=== PATIENT | female | born 1955 | race Caucasian/White ===

== ENCOUNTER 2017-08-15 03:55 | Observation (INO) | payer OTHER ==
[2017-08-15] MEDS ORDERED: Nitroglycerin 2% Ointment 1 INCH/1 GM Packet ONE (04:05)
[2017-08-15] MEDS ORDERED: Aspirin 325 MG TAB ONE (04:05)
[2017-08-15 04:19] LABS: #Basophils 0.1 thou/uL (0.0-0.2); #Eosinphils 0.2 thou/uL (0.0-0.7); #Lymphocytes 2.1 thou/uL (1.20-3.40); #Monocytes 0.6 thou/uL (0.11-0.59); #Neutrophils 3.5 thou/uL (1.40-6.50); %Basophils 1.3 % (0.0-1.0); %Eosinophils 3.3 % (0.0-10.0); %Lymphocytes 32.3 % (21.0-51.0); %Monocytes 9.7 % (0.0-10.0); %Neutrophils 53.5 % (42.0-75.0); Hemoglobin 13.6 g/dL (12.0-16.0); Mean Corpuscular HGB CONC 33.3 g/dL (32.0-36.0); Mean Corpuscular Hemoglobin 28.9 pg (27.0-31.0); Mean Corpuscular Volume 86.8 fl (81.0-99.0); Mean Platelet Volume 9.1 fL (7.4-10.4); Platelet Count 176 thou/uL (130-400); RBC Distribution Width 13.8 % (11.5-14.5); Red Blood Cell (RBC) Count 4.71 mill/uL (4.20-5.40); White Blood Cell (WBC) Count 6.6 thou/uL (4.8-10.8)
[2017-08-15 04:59] LABS: ALT (SGPT) 11 U/L (8-55); AST (SGOT) 52 U/L (5-34); Albumin 4.2 g/dL (3.4-4.8); Alkaline Phosphatase 90 U/L (40-150); Anion Gap 14 mmol/L (10-20); BUN (Urea Nitrogen) 13 mg/dL (9.8-20.1); Bilirubin, Total 0.3 mg/dL (0.2-1.2); Calc. Creatinine Clearance 0 mL/min (70-130); Calcium 9.4 mg/dL (7.8-10.44); Carbon Dioxide 22 mmol/L (23-31); Chloride 107 mmol/L (98-107); Estimated GFR-MDRD 79; Globulin 4.1 g/dL (2.4-3.5); Glucose 89 mg/dL (80-115); Potassium 4.1 mmol/L (3.5-5.1); Protein, Total 8.3 g/dL (6.0-8.3); Sodium 139 mmol/L (136-145)
[2017-08-15 05:01] LABS: CKMB 1.1 ng/mL (0-6.6); Troponin I Less than 0.010 ng/mL (< 0.028)
[2017-08-15] MEDS ORDERED: Acetaminophen 500 MG TAB ONE (05:50)
--- NOTE | 2017-08-15 05:56 | PDOC.FPRHP ---
- History of Present Illness Chief Complaint: chest pain, shortness of breath History of Present Illness: 61 year old female with PMH bradycardia, HTN, and anxiety that presents with chest tightness and headache. Patient states that she awoke from sleep around 2: 00 AM this morning with headache and dizziness. She also noted chest tightness at that time. It feels as though something is lightly sitting on her chest. Patient has been monitoring her BP closely over the last few weeks and states that over the last several days her BP seems to be rising. She has been highly concerned about these BP readings and states that they are causing her to have a headache that starts in the back of the head. She has experienced these symptoms once before and at that time her high BP was attributed as the cause of her PENDLETON's. She was started on norvasc and BP's seemed well controlled; however , due to lower extremity swelling she was taken off of norvasc and changed to losartan and nifedipine. Patient does endorse shortness of breath with exertion. She is on a CPAP machine at night for WIL. She denies orthopnea, leg swelling, or PND. Patient denies any upper respiratory symptoms, fever, or diarrhea. She did have some nausea associated with the chest tightness episode early this morning. Patient states she had a stress test performed in March of 2017 by her sustainable landscape architect in [place] for further evaluation of her chronic bradycardia. Stress test at that time was negative. ED Course: Patient was given 1000 mg of tylenol, 1 inch nitro paste, and ASA 325 mg. Lab work up in ED has been negative to include CE's. Patient was going to be sent home after third troponin resulted; however, she started to have chest pressure again that was worse than when it initially started, so it was decided to admit her for observation. - Allergies/Adverse Reactions Allergies Allergy/AdvReac Type Severity Reaction Status Date / Time prochlorperazine edisylate Allergy Severe Swollen Verified 05/30/14 16:19 [From Compazine] Lips morphine Allergy Mild Nausea Verified 05/30/14 16:19 Sulfa (Sulfonamide Allergy Mild Nausea Verified 05/30/14 16:19 Antibiotics) codeine Allergy Verified 06/24/14 21:29 meropenem [From Merrem] Allergy Verified 06/24/14 21:29 prochlorperazine maleate Allergy Verified 06/24/14 21:29 [From Compazine] - Home Medications Medication Instructions Recorded Confirmed Type Lansoprazole [Prevacid] 30 mg PO DAILY 05/30/14 08/15/17 History FLUoxetine HCl [Prozac] 20 mg PO DAILY 06/25/14 08/15/17 History Acetaminophen/Diphenhydramine 2 tablet PO HS 10/07/15 08/15/17 History [Acetaminophen PM Caplet] Biotin 1 mg PO DAILY 10/07/15 08/15/17 History Triamcinolone Acetonide [Nasacort 2 spray EA NARE DAILY 10/07/15 08/15/17 History AQ] Aspirin [Aspirin Chewable Tablet] 81 mg PO DAILY 08/15/17 08/15/17 History Furosemide [Lasix] 20 mg PO DAILY 08/15/17 08/15/17 History Losartan Potassium [Cozaar] 100 mg PO DAILY 08/15/17 08/15/17 History NIFEdipine [Nifedipine ER] 60 mg PO DAILY 08/15/17 08/15/17 History - History PMHx: HTN, bradycardia, Depression PSHx: Cholecystectomy, Laminectomy, C/S x2, Hysterectomy, Drainage of septic left knee FHx: Father had HI at 55-60 y/o Social: Patient denies any tobacco use. She endorses drinking socially and having one glass of wine per night. - Review of Systems General: denies: fever/chills, weight/appetite/sleep changes, night sweats, fatigue Eyes: denies: vision changes ENT: denies: nasal congestion, rhinorrhea Respiratory: reports: shortness of breath (with exertion), exercise intolerance. denies: cough, congestion Cardiovascular: reports: chest pain (tightness). denies: palpitation, edema, paroxysmal nocturnal dyspnea, orthopnea Gastrointestinal: reports: nausea. denies: vomiting, diarrhea, constipation, abdominal pain Genitourinary: denies: dysuria, polyuria Skin: denies: rashes, lesions, jaundice Musculoskeletal: denies: pain, tenderness, swelling Neurological: reports: numbness (facial numbness). denies: syncope, seizure Psychological: reports: anxiety, depression - Vital signs BP: 171/92 HR: 46 RR: 18 Tmax: 98.2 F Pox: 95% on RA Wt: 104.33 kg - Physical Exam Constitutional: NAD, awake, alert and oriented, well developed HEENT: normocephalic and atraumatic, PERRLA, EOMI, conjunctiva clear, no scleral icterus, grossly normal vision, normal nasal mucosa, MMM, oropharynx clear, good dention Neck: supple Heart: RRR, normal S1/S2, no murmurs/rubs/gallops, pulses present, other (trace edema) Lungs: CTAB, no respiratory distress, good air movement, no rales/rhonchi, no wheezing Abdomen: soft, non-tender, bowel sounds present, no masses/distention Musculoskeletal: normal structure, ROM grossly normal Neurological: no focal deficit, CN II-XII intact Skin: no rash/lesions, good turgor, capillary refill <2 seconds Heme/Lymphatic: no unusual bruising or bleeding, no purpura, no petechia Psychiatric: normal mood and affect, good judgment and insight, intact recent and remote memory FMR H&P: Results - Labs Result Diagrams: 08/15/17 04:17 08/15/17 04:17 Lab results: WBC 6.6 thou/uL (4.8-10.8) 08/15/17 04:17 Hgb 13.6 g/dL (12.0-16.0) 08/15/17 04:17 Hct 40.9 % (36.0-47.0) 08/15/17 04:17 MCV 86.8 fl (81.0-99.0) 08/15/17 04:17 Plt Count 176 thou/uL (130-400) 08/15/17 04:17 Neutrophils % 53.5 % (42.0-75.0) 08/15/17 04:17 Sodium 139 mmol/L (136-145) 08/15/17 04:17 Potassium 4.1 mmol/L (3.5-5.1) 08/15/17 04:17 Chloride 107 mmol/L (98-107) 08/15/17 04:17 Carbon Dioxide 22 mmol/L (23-31) L 08/15/17 04:17 BUN 13 mg/dL (9.8-20.1) 08/15/17 04:17 Creatinine 0.74 mg/dL (0.6-1.1) 08/15/17 04:17 Glucose 89 mg/dL (80-115) 08/15/17 04:17 Calcium 9.4 mg/dL (7.8-10.44) 08/15/17 04:17 Total Bilirubin 0.3 mg/dL (0.2-1.2) 08/15/17 04:17 AST 52 U/L (5-34) H 08/15/17 04:17 ALT 11 U/L (8-55) 08/15/17 04:17 Alkaline Phosphatase 90 U/L (40-150) 08/15/17 04:17 CK-MB (CK-2) 1.1 ng/mL (0-6.6) 08/15/17 04:17 Serum Total Protein 8.3 g/dL (6.0-8.3) 08/15/17 04:17 Albumin 4.2 g/dL (3.4-4.8) 08/15/17 04:17 - EKG Interpretation EKG: sinus arrhythmia, non-specific ST and T wave changes, LVH FMR H&P: A/P - Problem List (1) Atypical chest pain Current Visit: Yes Status: Acute Code(s): R07.89 - OTHER CHEST PAIN (2) HTN (hypertension) Current Visit: Yes Status: Chronic Code(s): I10 - ESSENTIAL (PRIMARY) HYPERTENSION Qualifiers: Hypertension type: essential hypertension Qualified Code(s): I10 - Essential (primary) hypertension (3) Bradycardia Current Visit: Yes Status: Chronic Code(s): R00.1 - BRADYCARDIA, UNSPECIFIED (4) Depression Current Visit: Yes Status: Chronic Code(s): F32.9 - MAJOR DEPRESSIVE DISORDER, SINGLE EPISODE, UNSPECIFIED (5) Obstructive sleep apnea Current Visit: Yes Status: Acute Code(s): G47.33 - OBSTRUCTIVE SLEEP APNEA ( ADULT) (PEDIATRIC) - Plan Atypical chest pain - Recurrent symptoms of chest tightness and associated occipital headache - Stress test in March of 2017 was negative - Patient has had elevated BP's over the last week - Troponin neg x2, continue to trend - Follows with sustainable landscape architect in [place] - Likely 2/2 anxiety - Pt was on amlodipine but d/c'd medication d/t LE swelling - Pt now takes losartan, nifedipine, and lasix for BP - Pt was on carvedilol for BP but has hx of chronic bradycardia so medication d/ c'd - Monitor BP and consider making changes as necessary - Heart score of 3 - No risk stratification labs done at this visit as pt follows closely with sustainable landscape architect - Pt will need close follow up with PCP HTN - Monitor BP - Hydralazine PRN for SBP >180 - Have pt follow up as outpatient - Reassure patient about BP readings Bradycardia - Chronic - Has been worked up as outpatient - Follows with sustainable landscape architect - Stress test in Mar 2017 was normal WIL - On CPAP at night Depression - Continue home medications Dispo: Pt admitted for observation. If troponins neg x3 and BP remains stable through the course of the day, then may discharge home with close follow up FMR H&P: Upper Level - Pertinent history 61 yo CF with PMHx of HTN, anxiety, and chronic bradycardia presented to ED for chest tightness and PENDLETON. Pt woke from sleep at 2am with bilateral occipital PENDLETON and nonradiating substernal chest tightness/pressure (like someone is pushing their hand down on her chest). Also endorsed nausea without vomiting and feeling of full body numbness. Pt had similar issues last year that along with hx of chronic bradycardia prompted stress test in Mar 27 that was normal per her sustainable landscape architect in [place]. Her main issue per cardiology right now is blood pressure control. Has been instructed to check BPs every morning on awakening since seeing cards again 2 wks ago. Pressures have mostly been <150 systolic except for last 3 days when 175-192/102-105. She has been anxious about these elevated pressures and endorses hx of anxiety/depression. Pt has hx WIL and uses CPAP nightly. Denies orthopnea or PND. Compliant with all meds. Chest pain improved with nitro but then returned so bringing in for observation. - Pertinent findings Gen: alert, NAD, resting comfortably Lungs: CTAB, no increased WOB CV: RRR, no m/r/g Chest: no reproducible pain on palpation Abd: NT/ND Ext: trace pedal edema - Plan Date/Time: 08/15/17 0555 1. Atypical chest pain. Pt had negative stress test in Mar 27 so unlikely a cardiac event although will monitor on observation unit due to recurrence of chest pressure. Heart score of 3. Trend troponins. First negative. Nitro given. EKG on recurrence of pain showed no signs of ischemia. ASA given. Could have anxiety component. Observation unit today with possibility of d/c today. 2. HTN. Appears less well controlled in last few days. Reviewing prior 2 weeks of logs, pt could benefit from slightly better control as it is. Has been managed by sustainable landscape architect and occasionally at [facility] but only seen a few times since establishing care. BP improved with nitro in ED. Continue to monitor. Consider adjusting BP meds in AM and then f/u with PCP and/or sustainable landscape architect. IV med prn. 3. Chronic sinus bradycardia. See cardiology who currently has no plans for intervention. Was attributed to beta malik use previously and mildly improved after stopping Coreg. HR in clinic 40s-50s per chart review. Monitor on telemetry. 4. WIL. Continue nightly CPAP. Textile Designer on compliance which should help HTN. 5. Depression/anxiety. Continue home med. I, Jonnie Gtz, have evaluated this patient and agree with findings/plan as outlined by intern brand resident. Pertinent changes/additions are listed here. Attending Addendum - Attending Addendum Date/Time: 08/15/17 1030 I personally evaluated the patient and discussed the management with Dr. Young/Ulisses. I agree with the History, Examination, Assessment and Plan documented above with any addition or exceptions noted below. Patient with recent normal stress testing in [place] 4 months ago here with chest pressure and headache associated with mild elevation of blood pressures. The history is consistent with anxiety about her elevated BP that led to the more severe sounding symptoms. She has been observed and noted to have no change in baseline EKG and negative troponins. She is currently asymptomatic and feels well. We will be discharging her home later today and advised early follow up with her sustainable landscape architect due to her recurrent symptoms.
[2017-08-15 06:43] LABS: Troponin I Less than 0.010 ng/mL (< 0.028)
[2017-08-15] MEDS ORDERED: Acetaminophen 325 MG TAB PO PRN (07:29)
[2017-08-15] MEDS ORDERED: Ondansetron HCl/PF 4 MG/2 ML Vial IVP PRN (07:29)
[2017-08-15] MEDS ORDERED: Nitroglycerin 0.4 MG TAB (25 Tab Bottle) SL PRN (07:29)
[2017-08-15] MEDS ORDERED: hydrALAZINE 20 MG/ML VIAL SLOW IVP PRN (07:29)
[2017-08-15] MEDS ORDERED: Ondansetron ODT 4 MG TAB PO PRN (07:29)
[2017-08-15 08:03] VITALS: BMI 38.7
--- NOTE | 2017-08-15 08:23 | RAD ---
PORTABLE AP CHEST XRAY: DATE: 08/15/17. HISTORY: Chest pain. COMPARISON: 05/30/14. FINDINGS: Cardiac silhouette and pulmonary vasculature are within normal limits. There is prominence of the ri ght tracheal soft tissues, but this is a stable finding when compared to the prior exam. The lungs a re clear. There is mild elevation of the right hemidiaphragm similar to prior study. No other inter celestino change. IMPRESSION: Stable chest without significant cardiopulmonary process. POS: [facility]
[2017-08-15] MEDS ORDERED: Aspirin 81 mg Enteric Coated Tablet PO SCH (09:00)
[2017-08-15 09:51] LABS: Troponin I Less than 0.010 ng/mL (< 0.028)
[2017-08-15 11:28] VITALS: BP 132/75; TEMP 97.6
--- NOTE | 2017-08-15 12:11 | DIS-2 ---
DATE OF ADMISSION: 08/15/2017 DATE OF DISCHARGE: 08/15/2017 PRIMARY CARE PHYSICIAN: Reece Rios M.D. ADMITTING ATTENDING: Ganesh Franklin M.D. DISCHARGE ATTENDING: Ganesh Franklin M.D. CONSULTATIONS: None. PROCEDURES: The patient underwent a chest x-ray on 08/15/2017 that showed a stable chest without sig nificant cardiopulmonary process. PRIMARY DISCHARGE DIAGNOSES: 1. Atypical chest pain. 2. Hypertension. 3. Bradycardia. 4. Anxiety-depression. 5. Obstructive sleep apnea. DISCHARGE MEDICATIONS: 1. Prevacid 30 mg p.o. daily. 2. Prozac 20 mg p.o. daily. 3. Biotin 1 mg p.o. daily. 4. Acetaminophen PM 500/25 mg 2 tablets p.o. at bedtime. 5. Nasacort AQ 16.5 grams 2 sprays each naris daily. 6. Lasix 20 mg p.o. daily. 7. Cozaar 100 mg p.o. daily. 8. Aspirin 81 mg p.o. daily. 9. Nifedipine 60 mg p.o. daily. DISCONTINUED MEDICATIONS: None. HISTORY OF PRESENT ILLNESS AND HOSPITAL COURSE: This is a 61-year-old female with past medical histo ry of bradycardia, hypertension and anxiety that presents with chest tightness and headache. The manav hernandez states she woke up around sleep from about 2:00 a.m. with a headache and dizziness. She also no mat chest tightness at that time. Feels as though something is lightly sitting on her chest. The eric liz has been monitored her BP closely over the past 2 weeks and states that over the last several d ays, her BP seems to be rising. She has been highly concerned about these BP readings and states guru t they are causing her to have a headache and starts in the back of her head. She has experienced th shanda symptoms once before and at that time are high BP was attributed as the cause of her headaches. She was started on Norvasc and BP seemed well controlled; however, due to her lower extremity swellin g, she was taken off Norvasc and changed to losartan, nifedipine. The patient does endorse shortness of breath with exertion. She is on CPAP machine at night for obstructive sleep apnea. She denies o rthopnea, leg swelling, or PND. Patient denies upper respiratory symptoms, fever or diarrhea. She d id have some nausea associated with chest tightness episode earlier this morning. The patient states she had a stress test performed in 03/2017 by a tea taster in [place] with further evaluation o f her chronic bradycardia. Stress test at that time was also negative. In the ER, she was given 100 0 mg of Tylenol, 1 inch nitro paste and aspirin 325 mg. During this hospitalization, the patient was found to have cardiac enzymes, troponins of less than 0. 010 x3 as well as a CK-MB of 1.1. Patient also otherwise had no further remarkable lab values. Hortencia ent's blood pressure was well controlled in the 120s/60s with a heart rate ranging from the 40s to 60 s longstanding. Patient otherwise did not have any further chest pain during her hospitalization. S he does attribute a lot of these chest pain symptoms to her anxiety and said as soon as she was able to relax and have her blood pressure come down into a lower range that also improved her symptoms. T he patient was counseled extensively on anxiety management as well as following up with her cardiolog ist and her PCP going forward. Her blood pressure has been steadily rising to as high as 170s over 9 0s systolic, not into a hypertensive urgency or emergency range, but to a range that her regimen woul d likely need to be changed last going forward as an outpatient. Otherwise, the patient had no furth er complication in this hospitalization and was discharged on appropriate condition. DISPOSITION: Stable. DISCHARGE INSTRUCTIONS: 1. Location: She will be discharged home into her own care. 2. Diet will be a heart healthy diet. 3. Activity will be as tolerated with no restrictions and follow up will be with her primary care pr Dr. Iván shah in 3 days to further discuss her anxiety issues as well as her blood pressure manage ment. Wished this patient best of luck and hope she has no further complications from this condition .
== END 2017-08-15 12:01 | disposition home or self-care (01) ==
LOC: ERS 03:55 → 2SW 06:25
PROVIDERS: ADMIT Student in an Organized Health Care Education/Training Program; ATTEND Student in an Organized Health Care Education/Training Program
DX: R07.89 Other chest pain (principal); I10 Essential (primary) hypertension; R00.1 Bradycardia, unspecified; F41.8 Other specified anxiety disorders; G47.33 Obstructive sleep apnea (adult) (pediatric); Z79.82 Long term (current) use of aspirin; Z79.899 Other long term (current) drug therapy; Z88.1 Allergy status to other antibiotic agents; Z88.2 Allergy status to sulfonamides; Z88.5 Allergy status to narcotic agent; Z88.8 Allergy status to other drugs, medicaments and biological substances; Z99.89 Dependence on other enabling machines and devices
CPT/HCPCS: 36415; 71045; 80053; 82553; 84484; 85025; 93005

== ENCOUNTER 2017-12-20 10:00 | Outpatient (CLI) | payer OTHER ==
[~2017-12-20 10:00] MED LIST: Iopamidol 370 76% 100 ML VIAL ONE
--- NOTE | 2017-12-20 17:34 | CT ---
CT ABDOMEN AND PELVIS WITH AND WITHOUT IV CONTRAST 12/20/17 HISTORY: Abdomen pain. FINDINGS: Each renal collecting system, ureter, and the urinary bladder are decompressed without stone evident. No filling defects are apparent within the urinary system on the delayed images. Tiny cysts associated with the kidneys are stable. Liver is diffusely hypodense. The gallbladder and uterus are surgically absent. Degenerative changes throughout the lumbar spine. Just anterior to the distal right ureter, an oval cystic lesion now measures up to 3.5 cm greatest AP diameter where it wa s 2.2 cm on the study from 10/06/15. IMPRESSION: No significant urinary tract abnormalities are demonstrated. Small renal cysts are stable. Hepatic steatosis. Well circumscribed oval cystic mass within the right pelvis, possibly adnexal in o rigin, has enlarged slightly over the last two years, now up to 3.5 cm. POS: [facility]
== END 2017-12-20 10:01 | disposition home or self-care (01) ==
LOC: SCSCT 10:00
PROVIDERS: ATTEND Urology
DX: N30.91 Cystitis, unspecified with hematuria (principal); N28.1 Cyst of kidney, acquired; R10.2 Pelvic and perineal pain; K76.0 Fatty (change of) liver, not elsewhere classified; R19.00 Intra-abdominal and pelvic swelling, mass and lump, unspecified site
CPT/HCPCS: 74178; 82565

== ENCOUNTER 2018-12-13 02:05 | Emergency (ER) | payer MEDICARE, OTHER ==
[2018-12-13] MEDS ORDERED: HYDROcodone/Acetaminophen 10/325 mg Tablet ONE (03:18)
[2018-12-13] MEDS ORDERED: Acetaminophen 500 MG TAB ONE (03:18)
[2018-12-13] MEDS ORDERED: Ketorolac Tromethamine 30 MG/ML VIAL ONE (03:47)
--- NOTE | 2018-12-13 07:49 | RAD ---
LEFT KNEE FOUR VIEWS: HISTORY: Left knee pain after falling in the bathtub. COMPARISON: None. FINDINGS: Four views of the left knee show no evidence of acute fracture or dislocation. No knee effusion is s een. No degenerative changes are seen. IMPRESSION: Unremarkable examination. POS: [facility]
== END 2018-12-13 04:10 | disposition home or self-care (01) ==
LOC: ERS 02:05
DX: M25.462 Effusion, left knee (principal); E78.00 Pure hypercholesterolemia, unspecified; F32.9 Major depressive disorder, single episode, unspecified; I10 Essential (primary) hypertension; M19.90 Unspecified osteoarthritis, unspecified site; Z79.82 Long term (current) use of aspirin; Z79.899 Other long term (current) drug therapy; W18.2XXA Fall in (into) shower or empty bathtub, initial encounter
CPT/HCPCS: 96372; J1885

== ENCOUNTER 2020-01-31 08:33 | Outpatient (CLI) | payer MEDICARE ==
--- NOTE | 2020-01-31 09:48 | ULT ---
GALLBLADDER ULTRASOUND: HISTORY: Pain. Cholecystectomy. COMPARISON: None. FINDINGS: The head of the pancreas has a normal echotexture. The remainder of the pancreas is obscured by mer l gas. Main portal vein is patent. Common bile duct diameter is 0.6 cm. There is right renal cortical thinning. No hydronephrosis. The right kidney measures 10.2 x 5.7 x 6 .0 cm. Hepatic parenchyma is normal in echotexture. No hepatic masses or intrahepatic biliary dilatation. The contour of the hepatic margin is maintained. Right hepatic lobe measures 15.3 cm. IMPRESSION: No acute abnormality. POS: [facility]
== END 2020-01-31 08:34 | disposition home or self-care (01) ==
LOC: BICULT 08:33
PROVIDERS: ATTEND General Practice
DX: K80.50 Calculus of bile duct without cholangitis or cholecystitis without obstruction (principal)
CPT/HCPCS: 76705

== ENCOUNTER 2020-09-25 11:56 | Outpatient (CLI) | payer MEDICARE | END 2020-09-25 11:57 | disposition home or self-care (01) | LOC: BICMAMMO 11:56 | PROVIDERS: ATTEND Student in an Organized Health Care Education/Training Program | DX: Z12.31 Encounter for screening mammogram for malignant neoplasm of breast (principal) | CPT/HCPCS: 77063; 77067 ==

== ENCOUNTER 2022-06-03 10:05 | Outpatient (CLI) | payer MEDICARE | END 2022-06-03 10:06 | disposition home or self-care (01) | LOC: BICRAD 10:05 | PROVIDERS: ATTEND Student in an Organized Health Care Education/Training Program | DX: M25.511 Pain in right shoulder (principal); M19.011 Primary osteoarthritis, right shoulder ==

== ENCOUNTER 2022-07-22 12:37 | Outpatient (CLI) | payer MEDICARE | END 2022-07-22 12:38 | disposition home or self-care (01) | LOC: BICRAD 12:37 | PROVIDERS: ATTEND Student in an Organized Health Care Education/Training Program | DX: M54.2 Cervicalgia (principal); M25.562 Pain in left knee; M25.561 Pain in right knee; M25.551 Pain in right hip; M25.552 Pain in left hip; M17.11 Unilateral primary osteoarthritis, right knee; M25.78 Osteophyte, vertebrae | CPT/HCPCS: 72040 ==

== ENCOUNTER 2024-01-09 15:50 | Outpatient (CLI) | payer MEDICARE | END 2024-01-09 15:51 | disposition home or self-care (01) | LOC: SCSRAD 15:50 | PROVIDERS: ATTEND Student in an Organized Health Care Education/Training Program | DX: M17.12 Unilateral primary osteoarthritis, left knee (principal); M35.01 Sjogren syndrome with keratoconjunctivitis; M06.4 Inflammatory polyarthropathy; M16.12 Unilateral primary osteoarthritis, left hip | CPT/HCPCS: 73565 ==

== ENCOUNTER 2024-11-19 09:44 | Outpatient (CLI) | payer MEDICARE | END 2024-11-19 09:45 | disposition home or self-care (01) | LOC: SCSMRI 09:44 | PROVIDERS: ATTEND Specialist | DX: M47.26 Other spondylosis with radiculopathy, lumbar region (principal); M47.27 Other spondylosis with radiculopathy, lumbosacral region; M43.16 Spondylolisthesis, lumbar region; M48.061 Spinal stenosis, lumbar region without neurogenic claudication | CPT/HCPCS: 72148 ==

== ENCOUNTER 2025-03-01 13:01 | Outpatient (CLI) | payer MEDICARE | END 2025-03-01 13:02 | disposition home or self-care (01) | LOC: SCSRAD 13:01 | PROVIDERS: ATTEND Specialist | DX: M43.16 Spondylolisthesis, lumbar region (principal); M47.816 Spondylosis without myelopathy or radiculopathy, lumbar region | CPT/HCPCS: 72120 ==